=== PATIENT | male | born 1945 | race Caucasian/White ===

== ENCOUNTER 2021-11-22 15:15 | Observation (INO) | payer OTHER, BC ==
--- OUTSIDE RECORDS SUMMARY | 2021-11-22 15:18 | XMS REPORT | Continuity of Care Document ---
:1945 Author Organization [facility] t Address [address] [place] [address] Care Team Providers Name Role Phone JAYDEN BARBA Primary Care Physician Unavailable Jayden Barba MD Attending Clinician JAYDEN BARBA Attending Clinician Unavailable Ariel Aragon Attending Clinician [phone] Jayden Anne MD Attending Clinician ARIEL FUNEZ Attending Clinician Unavailable Doctor Unassigned, [place] Attending Clinician Unavailable NISH PECK Attending Clinician Unavailable Provider, [facility] Attending Clinician Unavailable Yamilet Hernandez Attending Clinician YAMILET JOHNSON Attending Clinician Unavailable Serena Samuels Attending Clinician Payers Payer Name Policy Type Policy Number Effective Date Expiration Date S ource Problems Condition Condition Condition Status Onset Resolution Last Treating Co mments Source Name Details Category Date Date Treatment Clinician Date Systolic Systolic Disease Active 2014-02 Unive rs congestive congestive 02-16 it y of heart heart 00:00: [place] failure failure 00 Medical Branch Coronary Coronary Disease Active 2014-02 Unive rs artery artery 02-16 ity of disease disease 00:00: [place] without without 00 Medical angina 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-02 U nivers steremia steremia 02-16 ity of 00:00: [place] 00 Medical Branch Allergies, Adverse Reactions, Alerts Allergy Allergy Status Severity Reaction(s) Onset Inactive Treating Comm ents Source Name Type Date Date Clinician NO KNOWN Drug Active [facility] ALLERGIE Class ity of [facility] [place] [facility] Social History Social Habit Start Date Stop Date Quantity Comments Source Exposure to 2021-06-05 2021-06-15 Not sure [facility] SARS-CoV-2 (event) 00:00:00 13:52:00 Medica l Branch Alcohol intake 2021-06-06 2021-06-06 0 /d [facility] 00:00:00 00:00:00 Medical Branch Tobacco use and 2014-12-17 2014-12-17 Never used [facility] exposure 00:00:00 00:00:00 Medical Branch History of tobacco 2006-12-17 Smoker [facility] use 00:00:00 [facility] Sex [birth year] [facility] 00:00:00 00:00:00 Medical Branch Smoking Status Start Date Stop Date Source Former smoker 2014-12-17 00:00:00 2014-12-17 00:00:00 [facility] Medical Branch Medications Ordered Filled Start Stop Current Ordering Indication Dosage Frequency Signature Comments Components Source Medication Medication Date Date Medication? Clinician (SIG) Name Name traMADoL 50 Yes 50mg Take 50 mg Univers mg tablet 5-05 by mouth 3 ity of 00:00: (three) [place] 00 times Medical daily. Branch doxycycline Yes [id number] 100mg Take 1 Univers hyclate 100 5-01 9107 tablet by ity of mg tablet 00:00: mouth 2 [place] 00 (two) Medical times Branch daily. metOLazone Yes TAKE 1 Unive rs 10 mg 4-08 TABLET BY ity of tablet 00:00: MOUTH 1 [place] 00 HOURS Medical PRIOR TO Branch MORNING DOSE OF LASIX....1 TIME A WEEK furosemide Yes 80mg Take 80 mg U nivers (LASIX) 80 3-23 by mouth ity o f mg tablet 11:37: as needed [place] as 14 (edema). Medical Branch amoxicillin Yes [id number] 1{tbl} Take 1 Univers -clavulanat 3-23 tablet by ity of e 00:00: mouth 2 [place] (AUGMENTIN) 00 (two) Medical 875-125 mg times Branch per tablet daily. albuterol Yes [id number] 2{puff} Inhale 2 Univers 90 3-23 Puffs ity of mcg/actuati 00:00: every 6 [place] as on inhaler 00 (six) Medical hours as Branch needed for Wheezing or Shortness of Breath. benzonatate Yes [id number] 200mg Take 1 Univers 200 mg 3-23 capsule by ity of capsule 00:00: mouth 3 [place] 00 (three) Medical times Branch daily as needed for Cough. clopidogrel 2018-02 Yes 75mg Take 75 mg Univers (PLAVIX) 75 -07 by mouth ity of mg tablet 11:32: daily. [place] 57 Medical Branch atorvastati 2018-02 Yes 80mg Take 80 mg Univers n (LIPITOR) -07 by mouth ity of 80 mg 11:32: at [place] tablet 57 bedtime. Medical Branch sacubitril- 2018-02 Yes Take by Uni vers valsartan 1-07 mouth 2 ity of (ENTRESTO) 11:32: (two) [place] 24-26 mg 57 times Medical Tab daily. Branch KCL 10 mEq Yes 10meq Take 10 Uni vers tablet 1-02 mEq by ity of 00:00: mouth [place] 00 daily. Medical Branch Immunizations Ordered Filled Immunization Date Status Comments [facility] Immunization Name Name SARS-COV-2 COVID-19 2020-03-11 Completed Unive rsity of MODERNA VACCINE 00:00:00 [facility] SARS-COV-2 COVID-19 2020-02-12 Completed Unive rsity of MODERNA VACCINE 00:00:00 [facility] Influenza High Dose 2016-12-06 Completed Unive rsity of 00:00:00 [facility] Pneumococcal 13 2016-12-06 Completed Universit y of Conjugate, PCV13 00:00:00 [facility] dical (Prevnar 13) Branch Vital Signs Vital Name Observation Time Observation Value Comments Source Systolic blood 2021-06-15 19:17:00 95 mm[Hg] Univer sity of [place] pressure [facility] Diastolic blood 2021-06-15 19:17:00 65 mm[Hg] Unive rsity of [facility] Heart rate 2021-06-15 19:17:00 74 /min [facility] Body height 2021-06-15 19:17:00 172.7 cm [facility] Body weight 2021-06-15 19:17:00 75.751 kg [facility] BMI 2021-06-15 19:17:00 25.39 kg/m2 [facility] Procedures This patient has no known procedures. Encounters Start End Encounter Admission Attending Care Care Encounter Source Date/Time Date/Time Type Type Clinicians Facility Department ID 2021-06-15 2021-06-15 Office [facility] [place] [facility] [id number] Univers 14:00:00 14:15:00 Visit [facility] [id number] it y of Edward [place] [id number] [place] as COLTEN?BLEA [id number] [address] OFFICE [facility] 2021-06-15 2021-06-15 Outpatient [facility] [id number] Univers 14:00:00 14:00:00 [facility] 2021-06-15 2021-06-15 Outpatient [facility] [id number] Univers 14:00:00 14:00:00 [facility] 2021-06-09 2021-06-09 Telephone [facility] [place] [facility] [id number] Univers 00:00:00 00:00:00 [facility] [id number] it y of [place] [id number] [place] as COLTEN?BLEA [id number] [facility] [address] [place] MEDICAL OFFICE [facility] 2021-06-06 2021-06-06 [facility] Kavitha [facility] [id number] Univers 10:40:01 23:59:00 Encounter luisito Yosepholimpiahever [facility]ALTH [id number] ity of [place] 4.2.7.2.686 [place] as COLTEN?BLEA [id number] Vt parul GIRARD [address] [place] MEDICAL OFFICE [facility] 2021-06-06 2021-06-06 Urgent Ariel Funez [facility] 1.2 [id number] Univers 10:00:00 11:35:58 Care Jayden Martel HEALTH [id number] ity of [place] [id number] [place] as COLTEN?BLEA [id number] Vt parul GIRARD [address] [place] MEDICAL OFFICE BUILDING 2021-06-06 2021-06-06 Outpatient R [facility] [id number] Univers 10:16:28 10:39:00 SARIEL it y of [facility] 2021-06-06 2021-06-06 [facility] [id number] Univers 10:16:28 10:39:00 [facility] [id number] [facility] [id number] [place] as COLTEN?BLEA [phone] Vt parul GIRARD [address] [place] MEDICAL OFFICE [facility] 2021-04-28 2021-04-28 [facility] [id number] Univers 11:30:00 11:45:00 Visit [facility] [id number] it y of [place] [facility] [id number] [place] as COLTEN?BLEA [id number] Vt parul GIRARD 044 [facility] OFFICE [facility] 2021-04-28 2021-04-28 Outpatient R [facility] [id number] Univers 11:30:00 11:30:00 JAYDEN jose [facility] 2021-04-28 2021-04-28 Outpatient R [facility] [id number] Univers 11:30:00 11:30:00 JAYDEN jose [facility] 2020-12-24 2020-12-24 Orders Doctor KENDALL [id number] Univers 00:00:00 00:00:00 Only Unassigned, MERA [id number] ity of [place] [facility] [id number] [place] as [phone] [address] 2020-09-21 2020-09-21 Orders Doctor KENDALL [id number] Univers 00:00:00 00:00:00 Only Unassigned, MERA [id number] ity of [place] [facility] [id number] [place] as [id number] [address] 2020-03-11 2020-03-11 Outpatient Jeremiah PECK [facility] [id number] Univers 14:20:00 14:20:00 NISH ity [facility] 2020-02-12 2020-02-12 Outpatient Jeremiah PECK [facility] [id number] Univers 14:50:00 14:50:00 NISH ity [facility] 2020-02-12 2020-02-12 [facility] [id number] Univers 14:50:00 14:50:00 NISH [facility] 2019-12-07 2019-12-07 Urgent Provider, [facility] [id number] 15:49:53 16:37:32 Care [facility] [id number] Care [place] [id number] Professio [phone] [place] [address] Office [address] [facility] 2019-12-07 2019-12-07 Urgent Provider, [facility] [id number] Univers 15:49:53 16:37:32 Care Green, [facility] [id number] ity of [place] [id number] [place] as Professio [id number] [address] Office Building [facility] 2019-12-07 2019-12-07 Outpatient Jeremiah JOHNSON [facility] [id number] Univers 15:40:00 15:40:00 YAMILET [facility] 2019-11-01 2019-11-01 Urgent Provider, [facility] [id number] Univers 15:24:48 15:44:48 Care Anene, [facility] [id number] ity of [place] [id number] [place] as Professio [id number] [address] Office Building [facility] 2019-11-01 2019-11-01 Urgent Provider, [facility] [id number] 15:24:48 15:44:48 Care [facility] [id number] Care [place] [id number] Mary [phone] nal [address] Office [address] One 2019-11-01 2019-11-01 Outpatient R [facility] [id number] Univers 15:20:00 15:20:00 [facility] Results This patient has no known results.
[2021-11-22] MEDS ORDERED: NA CHLORIDE 0.9% 1,000 ML ONE (16:28)
--- NOTE | 2021-11-22 16:59 | RAD REPORT ---
EXAM DESCRIPTION: RAD - Chest Single View - 11/22/2021 4:50 pm CLINICAL HISTORY: CHF Chest pain. COMPARISON: CHEST SINGLE VIEW dated 12/23/2014; CHEST SINGLE VIEW dated 05/14/2014 FINDINGS: Portable technique limits examination quality. Moderate bilateral pulmonary opacities present likely representing pulmonary edema. The heart is mode rately enlarged in size. No displaced fractures.Sternotomy wires. IMPRESSION: Moderate CHF.
[2021-11-22 17:15] LABS: Protime INR 1.29
[2021-11-22 17:21] LABS: Absolute Lymphocytes (CBC) 0.5 K/uL (0.7-4.9); Hematocrit 34.8 % (39.6-49.0); Lymphocytes % 9.1 % (15.3-44.8); MCV 88.5 fL (80-100); MPV 8.4 fL (7.6-11.3); RBC Red Blood Cell Count 3.93 M/uL (4.33-5.43)
[2021-11-22 17:34] LABS: Albumin 3.1 g/dL (3.4-5.0); Bilirubin Direct 0.3 mg/dL (0-0.2); Bilirubin Total 0.9 mg/dL (0.2-1.0); Magnesium 2.2 mg/dL (1.8-2.4); Potassium 3.5 mmol/L (3.5-5.1); Protein, Total 7.1 g/dL (6.4-8.2)
[2021-11-22 17:55] LABS: SARS-CoV-2 Antigen Rapid Res Negative (Negative)
[2021-11-22] MEDS ORDERED: NOREPINEPHRINE BITARTRATE/D5W 4 MG/250 ML BAG IV ONE (20:05)
[2021-11-22] MEDS ORDERED: FUROSEMIDE 40 MG/4 ML VIAL ONE (20:33)
--- NOTE | 2021-11-22 20:49 | ER ---
Nurse's Notes [facility] Name: Teo Nassar Age: 76 yrs Sex: Male : 1945 Arrival Date: 11/22/2021 Time: 15:21 Bed 7 Private MD: Diagnosis: Hypotension, unspecified;Unspecified combined systolic (congestive) and diastolic (congestive) heart failure;Leakage from paracentesis puncture wound Presentation: 11/22 15:40 Chief complaint: Patient states: a week ago today he had a paracentesis done with Dr. dennis Gan, and since then he has had drainage from the site. Coronavirus screen: At this time, the client does not indicate any symptoms associated with coronavirus-19. Ebola Screen: Patient negative for fever greater than or equal to 101.5 degrees Fahrenheit, and additional compatible Ebola Virus Disease symptoms Patient denies exposure to infectious person. Patient denies travel to an Ebola-affected area in the 21 days before illness onset. No symptoms or risks identified at this time. Initial Sepsis Screen: Does the patient meet any 2 criteria? No. Patient's initial sepsis screen is negative. Does the patient have a suspected source of infection? No. Patient's initial sepsis screen is negative. Risk Assessment: Do you want to hurt yourself or someone else? Patient reports no desire to harm self or others. Onset of symptoms was November 15, 2021. 15:40 Method Of Arrival: Ambulatory iw 15:40 Acuity: RASTA 3 iw Historical: - Allergies: 15:41 No Known Allergies; iw - PMHx: 15:41 CHF; iw - Immunization history:: Adult Immunizations up to date, Client reports receiving the 2nd dose of the Covid vaccine. - Social history:: Smoking status: Patient denies any tobacco usage or history of. Patient/guardian denies using alcohol. Screenin:08 Abuse screen: Denies threats or abuse. Denies injuries from another. Nutritional ld1 screening: No deficits noted. Tuberculosis screening: No symptoms or risk factors identified. Fall Risk None identified. Assessment: 17:08 General: Appears in no apparent distress. comfortable, Behavior is calm, cooperative, ld1 appropriate for age. Pain: Denies pain. Neuro: Level of Consciousness is awake, alert, obeys commands, Oriented to person, place, time, situation, Appropriate for age. Cardiovascular: Capillary refill < 3 seconds Patient's skin is warm and dry. Rhythm is sinus rhythm. Respiratory: Airway is patent Respiratory effort is even, unlabored. GI: Abdomen is round distended, noted to have ascites, incisional drainage on abdomen due to paracentesis last Monday. : No signs and/or symptoms were reported regarding the genitourinary system. EENT: No signs and/or symptoms were reported regarding the EENT system. Derm: No signs and/or symptoms reported regarding the dermatologic system. Musculoskeletal: No signs and/or symptoms reported regarding the musculoskeletal system. 17:57 Reassessment: Patient appears in no apparent distress at this time. Patient and/or ld1 family updated on plan of care and expected duration. Pain level reassessed. Patient is alert, oriented x 3, equal unlabored respirations, skin warm/dry/pink. Patient denies pain at this time. 20:21 Reassessment: Patient appears in no apparent distress at this time. No changes from ld1 previously documented assessment. Patient and/or family updated on plan of care and expected duration. Pain level reassessed. Patient denies pain at this time. 20:36 Reassessment: Patient appears in no apparent distress at this time. Patient and/or ld1 family updated on plan of care and expected duration. Pain level reassessed. Patient states feeling better. Patient states symptoms have improved. 22:19 General: Appears in no apparent distress. Behavior is calm, cooperative, appropriate tw5 for age. Vital Signs: 15:43 BP 82 / 53; Pulse 66; Resp 16; Pulse Ox 99% on R/A; Weight 70.31 kg; Height 5 ft. 8 in. iw (172.72 cm); 17:08 BP 88 / 58; Pulse 65; Resp 17; Pulse Ox 92% on R/A; Pain 0/10; ld1 17:57 BP 83 / 56; Pulse 64; Resp 18; Pulse Ox 98% on R/A; Pain 0/10; ld1 19:07 BP 83 / 54; Pulse 58; Resp 15; Pulse Ox 99% on R/A; ld1 19:56 BP 78 / 53; Pulse 65; Resp 17; Pulse Ox 99% on R/A; ld1 20:12 BP 75 / 52; Pulse 62; ld1 20:15 BP 112 / 64; Pulse 64; ld1 20:17 BP 124 / 71; Pulse 72; ld1 20:18 BP 124 / 71; Pulse 73; ld1 20:21 BP 119 / 73; Pulse 88; Pulse Ox 100% on R/A; ld1 20:22 BP 119 / 73; Pulse 76; Resp 18; ld1 20:25 BP 127 / 80; Pulse 97; Resp 17; ld1 20:26 BP 140 / 77; Pulse 96; Resp 19; ld1 20:30 BP 128 / 81; Pulse 91; Resp 12; ld1 20:35 BP 119 / 60; Pulse 86; Resp 14; ld1 20:39 BP 118 / 78; Pulse 85; Resp 18; Temp 9; ld1 20:54 BP 114 / 57; Pulse 71; Resp 19; ld1 21:07 BP 111 / 62; Pulse 1; Resp 19; ld1 21:25 BP 98 / 68; Pulse 74; ld1 22:15 BP 110 / 73; Pulse 87; Resp 17 S; Pulse Ox 94% on R/A; as6 22:20 BP 110 / 73; tw5 22:30 BP 97 / 60; Pulse 69; Resp 15 S; Pulse Ox 96% on R/A; as6 22:40 BP 101 / 62; Pulse 68; Resp 15; Pulse Ox 95% ; as6 22:50 BP 101 / 62; Pulse 71; Resp 15 S; Pulse Ox 95% on R/A; as6 23:00 BP 83 / 47; Pulse 60; Resp 15 S; Pulse Ox 95% on R/A; as6 23:20 BP 84 / 50; Pulse 57; Resp 15 S; Pulse Ox 95% on R/A; as6 23:40 BP 83 / 52; Pulse 56; Resp 14 S; Pulse Ox 95% on R/A; as6 23:50 BP 108 / 66; Pulse 67; Resp 15 S; Pulse Ox 94% on R/A; as6 1018 00:00 BP 105 / 67; Pulse 65; Resp 16 S; Pulse Ox 68% on R/A; as6 00:20 BP 108 / 69; Pulse 83; Resp 15 S; Pulse Ox 94% on R/A; as6 00:30 BP 113 / 64; Pulse 79; Resp 15 S; Pulse Ox 96% on R/A; as6 00:40 BP 108 / 57; Pulse 82; Resp 14 S; Pulse Ox 96% on R/A; as6 00:50 BP 104 / 70; Pulse 65; Resp 14 S; Pulse Ox 97% on R/A; as6 01:00 BP 91 / 56; Pulse 78; Resp 15 S; Pulse Ox 98% on R/A; as6 01:10 BP 111 / 68; Pulse 78; Resp 15; Pulse Ox 97% ; as6 01:20 BP 99 / 62; Pulse 77; Resp 15 S; Pulse Ox 96% on R/A; as6 01:30 BP 104 / 55; Pulse 74; Resp 15 S; Pulse Ox 96% on R/A; as6 01:40 BP 109 / 64; Pulse 78; Resp 17 S; Pulse Ox 96% on R/A; as6 01:50 BP 111 / 70; Pulse 79; Resp 16 S; Pulse Ox 96% on R/A; as6 02:00 BP 98 / 64; Pulse 77; Resp 16 S; Pulse Ox 96% on R/A; as6 02:10 BP 106 / 65; Pulse 77; Resp 16 S; Pulse Ox 96% on R/A; as6 02:20 BP 109 / 57; Pulse 62; Resp 15 S; Pulse Ox 95% on R/A; as6 02:30 BP 103 / 57; Pulse 67; Resp 15; Pulse Ox 95% on R/A; as6 02:40 BP 113 / 71; Pulse 65; Resp 15; Pulse Ox 97% ; as6 02:50 BP 100 / 64; Pulse 64; Resp 18; Pulse Ox 96% on R/A; as6 03:00 BP 107 / 69; Pulse 69; Resp 18; Pulse Ox 96% on R/A; as6 05:00 BP 98 / 67; Pulse 81; Resp 16; Pulse Ox 96% on R/A; aa9 05:15 BP 98 / 66; Pulse 77; Resp 16; Pulse Ox 97% ; aa9 05:40 BP 105 / 59; Pulse 67; Resp 16 S; Pulse Ox 96% on R/A; aa9 05:50 BP 105 / 59; Pulse 78; Resp 16; Pulse Ox 98% ; aa9 06:40 BP 99 / 59; Pulse 63; Resp 16 S; Pulse Ox 98% on R/A; 11/22 15:43 Body Mass Index 23.57 (70.31 kg, 172.72 cm) iw ED Course: 11/22 15:21 Patient arrived in ED. as 15:37 Cherie Gracia FNP-C [facility]. snw 15:37 Joseline Vuong MD is Attending Physician. snw 15:41 Triage completed. iw 15:41 Arm band placed on. iw 16:26 Pat Wilkins, INESSA is Primary Nurse. ld1 16:51 XRAY Chest (1 view) In Process Unspecified. EDMS 17:07 Inserted saline lock: 20 gauge in left antecubital area, using aseptic technique. Blood ld1 collected. Missed attempt(s): 20 gauge in right forearm. 17:08 Patient has correct armband on for positive identification. Placed in gown. Bed in low ld1 position. Call light in reach. Side rails up X2. monitor and storage bin tender on. Pulse ox on. NIBP on. Door closed. Noise minimized. Warm blanket given. 17:08 No provider procedures requiring assistance completed. ld1 19:00 Bourgeois cath inserted, using sterile technique, 16 Fr., by mt, balloon inflated, to ld1 gravity drainage, returned clear yellow urine. Patient tolerated well. 20:36 Pillow given. Diet tray given. PO fluids given. ld1 20:48 Siva Watson is Hospitalizing Provider. snw 21:26 Report given to INESSA Velarde. ld1 22:13 Patient admitted, IV remains in place. as6 Administered Medications: 17:07 Drug: NS 0.9% 1000 ml Route: IV; Rate: 75 ml/hr; Site: left antecubital; ld1 20:12 Drug: Levophed (norepinephrine) 0.1 mcg/kg/min Route: IV; Rate: calculated rate; Site: ld1 left femoral; 20:18 Follow up: BP 124 / 71; Pulse 73 bpm; Response: Blood pressure is elevated; IV Status: ld1 Infusion continued 20:22 Follow up: BP 119 / 73; Pulse 76 bpm; Resp 18 bpm; IV Status: Infusion continued ld1 20:25 Follow up: BP 127 / 80; Pulse 97 bpm; Resp 17 bpm; Response: Blood pressure is ld1 elevated; IV Status: Infusion continued 20:26 Follow up: BP 140 / 77; Pulse 96 bpm; Resp 19 bpm; Response: No adverse reaction; IV ld1 Status: Infusion continued 20:30 Follow up: BP 128 / 81; Pulse 91 bpm; Resp 12 bpm; Response: No adverse reaction; Rate ld1 change 3.5 mcg/min; IV Status: Infusion continued 20:35 Follow up: BP 119 / 60; Pulse 86 bpm; Resp 14 bpm; Response: No adverse reaction; IV ld1 Status: Infusion continued 20:39 Follow up: BP 118 / 78; Pulse 85 bpm; Resp 18 bpm; Temp 9; Response: No adverse ld1 reaction; IV Status: Infusion continued 20:54 Follow up: BP 114 / 57; Pulse 71 bpm; Resp 19 bpm; Response: No adverse reaction; IV ld1 Status: Infusion continued 21:07 Follow up: BP 111 / 62; Pulse 1 bpm; Resp 19 bpm; Response: No adverse reaction; IV ld1 Status: Infusion continued 21:25 Follow up: BP 98 / 68; Pulse 74 bpm; Rate change 7 mcg/min; IV Status: Infusion ld1 continued 22:20 Follow up: BP 110 / 73; Rate change 4 mcg/min tw5 20:35 Drug: Lasix (furosemide) 40 mg Route: IVP; Site: left antecubital; ld1 21:08 Follow up: Response: No adverse reaction ld1 Medication: 17:08 VIS not applicable for this client. ld1 Intake: 20:36 PO: 250ml (Water); IV: 140ml (IV Fluid); Total: 390ml. ld1 Output: 20:36 Urine: 600ml (Bourgeois); Total: 600ml. ld1 Outcome: 20:48 Decision to Hospitalize by Provider. snw 22:12 Admitted to ER Hold. Please see [facility] for further documentation. as6 22:12 Condition: stable 22:12 Instructed on the need for admit. 11/23 20:41 Patient left the ED. kd3 Signatures: Dispatcher [employer] EDMS Cherie Gracia FNP-C [employer]-Gianna Whitney Irene, RN RN iw Pat Wilkins RN RN ld1 Chiquita Cota tw5 Syd Appiah RN RN as6 Gabriela Gonzalez RN RN kd3 Sarah Troncoso RN RN aa9
--- NOTE | 2021-11-22 20:49 | EDPHYS ---
Physician Documentation [facility] Name: Teo Nassar Age: 76 yrs Sex: Male : 1945 Arrival Date: 11/22/2021 Time: 15:21 Bed 7 Private MD: ED Physician Joseline Vuong HPI: 11/22 16:23 This 76 yrs old Male presents to ER via Ambulatory with complaints of Incisional snw Drainage. 16:23 Pt had first ever paracentesis last Monday by Dr. Gan. Procedure went well. Pt snw presents today with clear drainage from area, abdomen with edema, site healthy. Dr. Gómez encouraged pt to come in for reevaluation. Onset: The symptoms/episode began/occurred suddenly, 2 day(s) ago. Severity of symptoms: At their worst the symptoms were moderate in the emergency department the symptoms are unchanged. The patient has not experienced similar symptoms in the past. as noted. Pt does not have a PCP. Historical: - Allergies: 15:41 No Known Allergies; iw - PMHx: 15:41 CHF; iw - Immunization history:: Adult Immunizations up to date, Client reports receiving the 2nd dose of the Covid vaccine. - Social history:: Smoking status: Patient denies any tobacco usage or history of. Patient/guardian denies using alcohol. ROS: 16:21 Eyes: Negative for injury, pain, redness, and discharge, ENT: Negative for injury, snw pain, and discharge, Neck: Negative for injury, pain, and swelling, Cardiovascular: Negative for chest pain, palpitations, and edema, Respiratory: Negative for shortness of breath, cough, wheezing, and pleuritic chest pain, Back: Negative for injury and pain, : Negative for injury, bleeding, discharge, and swelling, MS/Extremity: Negative for injury and deformity, Skin: Negative for injury, rash, and discoloration, Neuro: Negative for headache, weakness, numbness, tingling, and seizure. 16:21 Constitutional: Positive for body aches, malaise, drainage from paracentesis procedure last Monday per Dr. Gan, site o/w healthy. 16:21 Abdomen/GI: Positive for draining from paracentesis site. Exam: 16:20 Head/Face: Normocephalic, atraumatic. Eyes: Pupils equal round and reactive to light, snw extra-ocular motions intact. Lids and lashes normal. Conjunctiva and sclera are non-icteric and not injected. Cornea within normal limits. Periorbital areas with no swelling, redness, or edema. ENT: Nares patent. No nasal discharge, no septal abnormalities noted. Tympanic membranes are normal and external auditory canals are clear. Oropharynx with no redness, swelling, or masses, exudates, or evidence of obstruction, uvula midline. Mucous membranes moist. Neck: Trachea midline, no thyromegaly or masses palpated, and no cervical lymphadenopathy. Supple, full range of motion without nuchal rigidity, or vertebral point tenderness. No Meningismus. Chest/axilla: Normal chest wall appearance and motion. Nontender with no deformity. No lesions are appreciated. 16:20 Respiratory: Lungs have equal breath sounds bilaterally, clear to auscultation and percussion. No rales, rhonchi or wheezes noted. No increased work of breathing, no retractions or nasal flaring. Abdomen/GI: Soft, non-tender, with normal bowel sounds. No distension or tympany. No guarding or rebound. No evidence of tenderness throughout. Back: No spinal tenderness. No costovertebral tenderness. Full range of motion. Skin: Warm, dry with normal turgor. Normal color with no rashes, no lesions, and no evidence of cellulitis. MS/ Extremity: Pulses equal, no cyanosis. Neurovascular intact. Full, normal range of motion. Neuro: Awake and alert, GCS 15, oriented to person, place, time, and situation. Cranial nerves II-XII grossly intact. Motor strength 5/5 in all extremities. Sensory grossly intact. Cerebellar exam normal. Normal gait. 16:20 Constitutional: The patient appears alert, awake, pale, uncomfortable. 16:20 Cardiovascular: Rate: normal, Heart sounds: normal, low bp, belly with edema, draining from prior paracentesis puncture. Vital Signs: 15:43 BP 82 / 53; Pulse 66; Resp 16; Pulse Ox 99% on R/A; Weight 70.31 kg; Height 5 ft. 8 in. iw (172.72 cm); 17:08 BP 88 / 58; Pulse 65; Resp 17; Pulse Ox 92% on R/A; Pain 0/10; ld1 17:57 BP 83 / 56; Pulse 64; Resp 18; Pulse Ox 98% on R/A; Pain 0/10; ld1 19:07 BP 83 / 54; Pulse 58; Resp 15; Pulse Ox 99% on R/A; ld1 19:56 BP 78 / 53; Pulse 65; Resp 17; Pulse Ox 99% on R/A; ld1 20:12 BP 75 / 52; Pulse 62; ld1 20:15 BP 112 / 64; Pulse 64; ld1 20:17 BP 124 / 71; Pulse 72; ld1 20:18 BP 124 / 71; Pulse 73; ld1 20:21 BP 119 / 73; Pulse 88; Pulse Ox 100% on R/A; ld1 20:22 BP 119 / 73; Pulse 76; Resp 18; ld1 20:25 BP 127 / 80; Pulse 97; Resp 17; ld1 20:26 BP 140 / 77; Pulse 96; Resp 19; ld1 20:30 BP 128 / 81; Pulse 91; Resp 12; ld1 20:35 BP 119 / 60; Pulse 86; Resp 14; ld1 20:39 BP 118 / 78; Pulse 85; Resp 18; Temp 9; ld1 20:54 BP 114 / 57; Pulse 71; Resp 19; ld1 21:07 BP 111 / 62; Pulse 1; Resp 19; ld1 21:25 BP 98 / 68; Pulse 74; ld1 22:15 BP 110 / 73; Pulse 87; Resp 17 S; Pulse Ox 94% on R/A; as6 22:20 BP 110 / 73; tw5 22:30 BP 97 / 60; Pulse 69; Resp 15 S; Pulse Ox 96% on R/A; as6 22:40 BP 101 / 62; Pulse 68; Resp 15; Pulse Ox 95% ; as6 22:50 BP 101 / 62; Pulse 71; Resp 15 S; Pulse Ox 95% on R/A; as6 23:00 BP 83 / 47; Pulse 60; Resp 15 S; Pulse Ox 95% on R/A; as6 23:20 BP 84 / 50; Pulse 57; Resp 15 S; Pulse Ox 95% on R/A; as6 23:40 BP 83 / 52; Pulse 56; Resp 14 S; Pulse Ox 95% on R/A; as6 23:50 BP 108 / 66; Pulse 67; Resp 15 S; Pulse Ox 94% on R/A; as6 11/23 00:00 BP 105 / 67; Pulse 65; Resp 16 S; Pulse Ox 68% on R/A; as6 00:20 BP 108 / 69; Pulse 83; Resp 15 S; Pulse Ox 94% on R/A; as6 00:30 BP 113 / 64; Pulse 79; Resp 15 S; Pulse Ox 96% on R/A; as6 00:40 BP 108 / 57; Pulse 82; Resp 14 S; Pulse Ox 96% on R/A; as6 00:50 BP 104 / 70; Pulse 65; Resp 14 S; Pulse Ox 97% on R/A; as6 01:00 BP 91 / 56; Pulse 78; Resp 15 S; Pulse Ox 98% on R/A; as6 :10 BP 111 / 68; Pulse 78; Resp 15; Pulse Ox 97% ; as6 :20 BP 99 / 62; Pulse 77; Resp 15 S; Pulse Ox 96% on R/A; as6 :30 BP 104 / 55; Pulse 74; Resp 15 S; Pulse Ox 96% on R/A; as6 :40 BP 109 / 64; Pulse 78; Resp 17 S; Pulse Ox 96% on R/A; as6 01:50 BP 111 / 70; Pulse 79; Resp 16 S; Pulse Ox 96% on R/A; as6 02:00 BP 98 / 64; Pulse 77; Resp 16 S; Pulse Ox 96% on R/A; as6 :10 BP 106 / 65; Pulse 77; Resp 16 S; Pulse Ox 96% on R/A; as6 :20 BP 109 / 57; Pulse 62; Resp 15 S; Pulse Ox 95% on R/A; as6 02:30 BP 103 / 57; Pulse 67; Resp 15; Pulse Ox 95% on R/A; as6 02:40 BP 113 / 71; Pulse 65; Resp 15; Pulse Ox 97% ; as6 02:50 BP 100 / 64; Pulse 64; Resp 18; Pulse Ox 96% on R/A; as6 03:00 BP 107 / 69; Pulse 69; Resp 18; Pulse Ox 96% on R/A; as6 05:00 BP 98 / 67; Pulse 81; Resp 16; Pulse Ox 96% on R/A; aa9 05:15 BP 98 / 66; Pulse 77; Resp 16; Pulse Ox 97% ; aa9 05:40 BP 105 / 59; Pulse 67; Resp 16 S; Pulse Ox 96% on R/A; aa9 05:50 BP 105 / 59; Pulse 78; Resp 16; Pulse Ox 98% ; aa9 06:40 BP 99 / 59; Pulse 63; Resp 16 S; Pulse Ox 98% on R/A; aa9 11/22 15:43 Body Mass Index 23.57 (70.31 kg, 172.72 cm) iw Procedures: 11/22 20:06 Central Line: the site was prepped with in sterile fashion, hibiclens, a triple lumen snw catheter was inserted, in the left femoral vein, in 1 attempts. placement was verified, by blood return, the site was dressed with Tegaderm, using sterile technique, the patient tolerated the procedure, well. MDM: 15:46 Patient medically screened. snw 17:24 Physician consultation: Dann Nash MD was called at 17:24, was contacted at 17:24, snw regarding admission, Dr. Nash would like pt transferred to higher level of care. 20:04 Data reviewed: vital signs, nurses notes. Data interpreted: Pulse oximetry: on room air snw is 99 %. Counseling: I had a detailed discussion with the patient and/or guardian regarding: the historical points, exam findings, and any diagnostic results supporting the discharge/admit diagnosis, lab results, radiology results, the need for further work-up and treatment in the hospital. ED course: unable to diurese pt with current bp, left femoral triple lumen central line placed per sterile technique. +blood return and flushed to all ports. Pt tolerated procedure well.. 11/22 15:55 Order name: Basic Metabolic Panel; Complete Time: 17:36 snw 11/22 15:55 Order name: CBC with Diff; Complete Time: 17:27 snw 11/22 15:55 Order name: Hepatic Function; Complete Time: 17:36 snw 11/22 15:55 Order name: Magnesium; Complete Time: 17:36 snw 11/22 15:55 Order name: NT PRO-BNP; Complete Time: 17:36 snw 11/22 15:55 Order name: Protime (+inr); Complete Time: 17:15 snw 11/22 15:55 Order name: Troponin HS; Complete Time: 17:36 snw 11/22 15:55 Order name: Blood Culture Adult (2); Complete Time: 20:15 snw 11/22 15:55 Order name: Lactate; Complete Time: 17:36 snw 11/22 17:14 Order name: SARS RAPID; Complete Time: 18:00 snw 11/23 03:04 Order name: CBC with Automated Diff; Complete Time: 03:07 EDMS 11/23 03:34 Order name: Comprehensive Metabolic Panel; Complete Time: 03:38 EDMS 11/23 03:34 Order name: Phosphorus; Complete Time: 03:38 EDMS 11/23 03:34 Order name: Lipid Profile; Complete Time: 03:38 EDMS 11/22 15:55 Order name: XRAY Chest (1 view); Complete Time: 17:01 snw 11/22 15:55 Order name: EKG; Complete Time: 15:56 snw 11/22 15:55 Order name: Cardiac monitoring; Complete Time: 16:26 snw 11/22 15:55 Order name: EKG - Nurse/Tech; Complete Time: 16:26 snw 11/22 15:55 Order name: IV Saline Lock; Complete Time: 17:07 snw 11/22 15:55 Order name: Labs collected and sent; Complete Time: 17:07 snw 11/22 15:55 Order name: O2 Per Protocol; Complete Time: 16:26 snw 11/22 15:55 Order name: O2 Sat Monitoring; Complete Time: 16:26 snw 11/22 19:57 Order name: Diet 2 Gm Sodium; Complete Time: 19:58 snw 11/23 03:34 Order name: Magnesium; Complete Time: 03:38 EDMS 11/23 03:34 Order name: Thyroid Stimulating Hormone; Complete Time: 03:38 EDMS 11/22 17:30 Order name: Bourgeois; Complete Time: 19:00 snw 11/22 19:57 Order name: Central Line Kit; Complete Time: 20:14 snw EC:30 Rate is 55 beats/min. Rhythm is regular. Q waves are Present. No ST changes noted. snw Clinical impression: Sinus bradycardia. Administered Medications: 17:07 Drug: NS 0.9% 1000 ml Route: IV; Rate: 75 ml/hr; Site: left antecubital; ld1 20:12 Drug: Levophed (norepinephrine) 0.1 mcg/kg/min Route: IV; Rate: calculated rate; Site: ld1 left femoral; 20:18 Follow up: BP 124 / 71; Pulse 73 bpm; Response: Blood pressure is elevated; IV Status: ld1 Infusion continued 20:22 Follow up: BP 119 / 73; Pulse 76 bpm; Resp 18 bpm; IV Status: Infusion continued ld1 20:25 Follow up: BP 127 / 80; Pulse 97 bpm; Resp 17 bpm; Response: Blood pressure is ld1 elevated; IV Status: Infusion continued 20:26 Follow up: BP 140 / 77; Pulse 96 bpm; Resp 19 bpm; Response: No adverse reaction; IV ld1 Status: Infusion continued 20:30 Follow up: BP 128 / 81; Pulse 91 bpm; Resp 12 bpm; Response: No adverse reaction; Rate ld1 change 3.5 mcg/min; IV Status: Infusion continued 20:35 Follow up: BP 119 / 60; Pulse 86 bpm; Resp 14 bpm; Response: No adverse reaction; IV ld1 Status: Infusion continued 20:39 Follow up: BP 118 / 78; Pulse 85 bpm; Resp 18 bpm; Temp 9; Response: No adverse ld1 reaction; IV Status: Infusion continued 20:54 Follow up: BP 114 / 57; Pulse 71 bpm; Resp 19 bpm; Response: No adverse reaction; IV ld1 Status: Infusion continued 21:07 Follow up: BP 111 / 62; Pulse 1 bpm; Resp 19 bpm; Response: No adverse reaction; IV ld1 Status: Infusion continued 21:25 Follow up: BP 98 / 68; Pulse 74 bpm; Rate change 7 mcg/min; IV Status: Infusion ld1 continued 22:20 Follow up: BP 110 / 73; Rate change 4 mcg/min tw5 20:35 Drug: Lasix (furosemide) 40 mg Route: IVP; Site: left antecubital; ld1 21:08 Follow up: Response: No adverse reaction ld1 Disposition Summary: 11/22/21 20:48 Hospitalization Ordered Hospitalization Status: Inpatient Admission snw Provider: Siva Watson snyesi Condition: Stable snw Problem: an acute exacerbation snw Symptoms: have worsened snw Bed/Room Type: Standard snw Location: [facility] ER HOLD(11/22/21 21:07) cg Room Assignment: ERHOLD-(11/22/21 21:07) cg Diagnosis - Hypotension, unspecified snw - Unspecified combined systolic (congestive) and diastolic (congestive) heart failure snw - Leakage from paracentesis puncture wound snw Forms: - Medication Reconciliation Form snw - SBAR form snw Critical care time excluding procedures: 11/23 16:06 Critical care time: Bedside Care: 15 minutes, Consultation: 20 minutes, Family snw Intervention: 5 minutes. Total time: 40 minutes Addendum: 11/25/2021 03:47 STAFF ATTESTATION STATEMENT: I was immediately available onsite in the emergency s d2 department for consultation in the care of this patient. I did not see or examine this patient. Joseline Vuong MD. Signatures: Dispatcher [employer] EDMS Cherie Gracia, CARPENTER SUPERVISOR-C CARPENTER SUPERVISOR-Csnw Lucinda Corley RN RN iw Leti Cartagena RN RN cg Pat Wilkins RN RN ld1 Joseline Vuong MD MD sd2 Karrie Dubois PA-C PA-C sb4 Chiquita Cota tw5 Corrections: (The following items were deleted from the chart) 11/22 20:33 18:31 Angio Aorta For Dissection ordered. EDNM EDMS 21: 20:48 Intensive Care Unit snw cg 21: 20:48 snw cg
--- NOTE | 2021-11-22 21:33 | P.HP ---
Certification for Inpatient Patient admitted to: Inpatient With expected LOS: >2 Midnights Patient will require the following post-hospital care: None Practitioner: I am a practitioner with admitting privileges, knowledge of patient current condition, hospital course, and medical plan of care. Services: Services provided to patient in accordance with Admission requirements found in Title 42 Section 412.3 of the Code of Federal Regulations Patient History Date of Service: 11/23/21 Reason for admission: Hypotension, Paracentesis Complication History of Present Illness: Patient is a 76 year old male with history of hypertension, ascites, systolic CHF, and CAD who presented to the ED with complaints of incisional drainage. Patient had a successful RLQ paracentesis done by Dr. Gan 1 week ago (ordered by Dr. Gómez) in which 8L were removed. He is noted to have clear drainage from the incision site with minimal edema. Labs are significant for sodium 133, chloride 89, BUN 64, creatinine 1.76, BNP 8000. Chest x-ray showed moderate CHF. he was noted to be borderline hypotensive and fluid overloaded. He was subsequently put on levophed drip, started on lasix, and bourgeois inserted. He has diuresed well and BP has responded appropriately. He is admitted for further management. Allergies No Known Drug Allergies Allergy (Verified 11/15/21 08:57) Unknown Home Medications: Aspirin [Nallely Chewable Aspirin] 1 tab PO DAILY 05/14/14 Clopidogrel Bisulfate [Plavix*] 75 mg PO DAILY #30 tablet 05/17/14 Atorvastatin Calcium [Lipitor] 20 mg PO DAILY 12/23/14 Sacubitril/Valsartan [Entresto 24 mg-26 mg Tablet] 1 tab PO BID 12/23/14 Furosemide 80 mg PO DAILY 11/15/21 - Past Medical/Surgical History Diabetic: No -: CAD -: Hyperlipidemia -: DVT-R arm -: Ascites -: Systolic CHF -: cardiac stent x 2 -: CABG -: deviated septum repair -: Right arm surgery Psychosocial/ Personal History: Patient lives at home. - Social History Smoking Status: Never smoker Alcohol use: No CD- Drugs: No Caffeine use: Yes Place of Residence: Home Review of Systems General: Malaise Integumentary: As per HPI Physical Examination - Physical Exam General: Alert, In no apparent distress HEENT: Atraumatic, PERRLA, EOMI, Sclerae nonicteric Neck: Supple, 2+ carotid pulse no bruit, No LAD, Without JVD or thyroid abnormality Respiratory: Clear to auscultation bilaterally, Normal air movement Cardiovascular: Regular rate/rhythm, Normal S1 S2 Gastrointestinal: Normal bowel sounds, No tenderness Musculoskeletal: No tenderness Integumentary: Other (Benign incision site to RLQ with clear drainage. Mild erythema) Neurological: Normal speech, Normal strength at 5/5 x4 extr, Normal tone, Normal affect Urinary: Bourgeois catheter - Studies Laboratory Data (last 24 hrs) 11/22/21 16:54: PT 14.2 H, INR 1.29 11/22/21 16:54: WBC 4.90, Hgb 11.7 L, Hct 34.8 L, Plt Count 231 11/22/21 16:54: Sodium 133 L, Potassium 3.5, BUN 64 H, Creatinine 1.76 H, Glucose 91, Magnesium 2.2, Total Bilirubin 0.9, AST 24, ALT 32, Alkaline Phosphatase 163 H Assessment and Plan - Problems (Diagnosis) (1) Hypotension Current Visit: Yes Status: Acute Qualifiers: Hypotension type: unspecified hypotension type Qualified Code(s): I95.9 - Hypotension, unspecified (2) CHF (congestive heart failure) Current Visit: Yes Status: Acute Qualifiers: Heart failure type: systolic Heart failure chronicity: acute on chronic Qualified Code(s): I50.23 - Acute on chronic systolic (congestive) heart failure (3) Cirrhosis Current Visit: Yes Status: Acute Qualifiers: Hepatic cirrhosis type: alcoholic cirrhosis Ascites presence: with ascites Qualified Code(s): K70.31 - Alcoholic cirrhosis of liver with ascites (4) CAD (coronary artery disease) Current Visit: Yes Status: Acute Qualifiers: Coronary Disease-Associated Artery/Lesion type: bypass graft [place] vs. transplanted heart: [place] heart Associated angina: without angina Qualified Code(s): I25.810 - Atherosclerosis of coronary artery bypass graft(s) without angina pectoris - Plan -Patient is admitted to ICU -Continue levophed drip and wean as tolerated -Cardiology consult given cardiac history and ordering physician for paracente sis -Albumin ordered -IV lasix. Bourgeois in place. Monitor intake and output. Fluid restriction -Monitor and replete electrolytes per protocol -Reconcile and continue home medications -VTE ppx -Full code Discharge Plan: Home Plan to discharge in: 48 Hours - Advance Directives Does patient have a Living Will: No Does patient have a Durable POA for Healthcare: No - Code Status/Comfort Care Code Status Assessed: Yes (Full) Critical Care: No Time Spent Managing Pts Care (In Minutes): 50
[2021-11-22] MEDS ORDERED: ONDANSETRON 4 MG/2 ML VIAL IV PRN (22:08)
[2021-11-22] MEDS ORDERED: ACETAMINOPHEN 500 MG TAB PO PRN (22:08)
[2021-11-22 22:23] VITALS: BMI 23.6
[2021-11-23 02:57] LABS: Absolute Lymphocytes (CBC) 0.6 K/uL (0.7-4.9); Hematocrit 35.3 % (39.6-49.0); Lymphocytes % 7.3 % (15.3-44.8); MCV 88.4 fL (80-100); MPV 8.5 fL (7.6-11.3); RBC Red Blood Cell Count 3.99 M/uL (4.33-5.43)
[2021-11-23] MEDS: ALBUMIN HUMAN 25% 50 ML IV SCH ×2 (03:07→03:37)
[2021-11-23] MEDS ORDERED: ALBUMIN HUMAN 25% 100 ML IV ONE (03:21)
[2021-11-23] MEDS ORDERED: ACETAMINOPHEN 500 MG TAB ONE (03:31)
[2021-11-23 03:34] LABS: Albumin 3.1 g/dL (3.4-5.0); Bilirubin Total 1.3 mg/dL (0.2-1.0); Magnesium 2.1 mg/dL (1.8-2.4); Phosphorus 4.2 mg/dL (2.5-4.9); Potassium 3.2 mmol/L (3.5-5.1); Thyroid Stimulating Hormone 2.56 uIU/mL (0.360-3.740)
[2021-11-23] MEDS: NOREPINEPHRINE 4 MG in D5W 250 ML IV SCH ×2 (07:00→18:45)
[2021-11-23] MEDS ORDERED: INFLUENZA VACCINE (for 6+ mo) 0.5 ML DOSE IMVAC ONE (08:00)
[2021-11-23] MEDS: FUROSEMIDE 40 MG/4 ML VIAL IV SCH ×2 (09:00→17:00)
[2021-11-23 09:20] VITALS: O2SAT 97
[2021-11-23] MEDS ORDERED: NOREPINEPHRINE BITARTRATE/D5W 4 MG/250 ML BAG IV ONE (12:37)
[2021-11-23] MEDS: MIDODRINE HCL 5 MG TABLET PO SCH ×2 (13:30→15:30)
--- NOTE | 2021-11-23 14:03 | EKG ---
Test Date: 2021-11-22 Test Time: 16:25:37 Serger: ESTEVAN MEASUREMENT RESULTS: Intervals: Rate: 55 NV: 164 QRSD: 186 QT: 554 QTc: 529 [place]: P: 72 NV: 164 QRS: -67 T: 108 INTERPRETIVE STATEMENTS: Sinus bradycardia Left axis deviation Nonspecific intraventricular block Lateral infarct, age undetermined Cannot rule out Inferior infarct, age undetermined Abnormal ECG Compared to ECG 12/23/2014 16:57:13 Left-axis deviation now present Sinus rhythm no longer present Right bundle-branch block no longer present Myocardial infarct finding still present Electronically Signed On 11-23-21 14:01:32 CDT by Dann Nash
--- NOTE | 2021-11-23 18:30 | P.DS ---
Admission Date: 11/22/21 Discharge Date: 11/23/21 Disposition: ROUTINE DISCHARGE Discharge Condition: FAIR Reason for Admission: Hypotension, Paracentesis Complication - Problems (1) CAD (coronary artery disease) Status: Acute Qualifiers: Coronary Disease-Associated Artery/Lesion type: bypass graft [place] vs. transplanted heart: [place] heart Associated angina: without angina Qualified Code(s): I25.810 - Atherosclerosis of coronary artery bypass graft(s) without angina pectoris (2) Cirrhosis Status: Acute Qualifiers: Hepatic cirrhosis type: alcoholic cirrhosis Ascites presence: with ascites Qualified Code(s): K70.31 - Alcoholic cirrhosis of liver with ascites (3) Hypotension Status: Acute Qualifiers: Hypotension type: unspecified hypotension type Qualified Code(s): I95.9 - Hypotension, unspecified Brief History of Present Illness: Patient is a 76 year old male with history of hypertension, ascites, systolic CHF, and CAD who presented to the ED with complaints of drainage from site of previous paracentesis.. Patient had a successful RLQ paracentesis done by Dr. Gan 1 week ago (ordered by Dr. Gómez) in which 8L were removed. He is noted to have clear drainage from the incision site with minimal edema. Labs are significant for sodium 133, chloride 89, BUN 64, creatinine 1.76, BNP 8000. Chest x-ray showed moderate CHF. he was noted to be borderline hypotensive and fluid overloaded. He was subsequently put on levophed drip, started on lasix, and shannon inserted. Patient admitted for further management. Hospital Course: Patient placed in ICU on Levophed. He reported his blood pressure usually running low with systolic in the 80s. Patient was started on midodrine given history of liver cirrhosis with ascites, and Levophed discontinued. His systolic blood pressure was in the 90s after discontinuing the Levophed drip. Patient is currently asymptomatic. A tape was placed at the paracentesis site and no oozing noted. Patient deemed clinically stable for discharge. His home medications are resumed on discharge. He is prescribed midodrine and Aldactone. Vital Signs/Physical Exam: Temp Pulse Resp BP Pulse Ox 97.2 F 72 24 H 94/69 99 11/23/21 18:00 11/23/21 18:00 11/23/21 18:00 11/23/21 18:00 11/23/21 18:00 General: Alert, Oriented x3 HEENT: Mucous membr. moist/pink Neck: Supple, JVD not distended Respiratory: Clear to auscultation bilaterally, Normal air movement Cardiovascular: Regular rate/rhythm, Normal S1 S2, Edema (Bilateral lower extremities.) Gastrointestinal: Distended, Ascites Laboratory Data at Discharge: WBC 8.20 K/uL (4.3-10.9) 11/23/21 02:44 Hgb 12.0 g/dL (13.6-17.9) L 11/23/21 02:44 Hct 35.3 % (39.6-49.0) L 11/23/21 02:44 Plt Count 266 K/uL (152-406) 11/23/21 02:44 PT 14.2 SECONDS (9.5-12.5) H 11/22/21 16:54 INR 1.29 11/22/21 16:54 Sodium 131 mmol/L (136-145) L 11/23/21 02:44 Potassium 3.2 mmol/L (3.5-5.1) L 11/23/21 02:44 BUN 60 mg/dL (7-18) H 11/23/21 02:44 Creatinine 1.54 mg/dL (0.55-1.3) H 11/23/21 02:44 Glucose 109 mg/dL (74-106) H 11/23/21 02:44 Phosphorus 4.2 mg/dL (2.5-4.9) 11/23/21 02:44 Magnesium 2.1 mg/dL (1.8-2.4) 11/23/21 02:44 Total Bilirubin 1.3 mg/dL (0.2-1.0) H 11/23/21 02:44 AST 25 U/L (15-37) 11/23/21 02:44 ALT 29 U/L (12-78) 11/23/21 02:44 Alkaline Phosphatase 149 U/L (45-117) H 11/23/21 02:44 Triglycerides 55 mg/dL (<150) 11/23/21 02:44 Cholesterol 136 mg/dL (<200) 11/23/21 02:44 HDL Cholesterol 35 mg/dL (40-60) L 11/23/21 02:44 Cholesterol/HDL Ratio 3.89 11/23/21 02:44 Home Medications: Aspirin [Nallely Chewable Aspirin] 1 tab PO DAILY 05/14/14 Clopidogrel Bisulfate [Plavix*] 75 mg PO DAILY #30 tablet 05/17/14 Atorvastatin Calcium [Lipitor] 20 mg PO DAILY 12/23/14 Sacubitril/Valsartan [Entresto 24 mg-26 mg Tablet] 1 tab PO BID 12/23/14 Furosemide 80 mg PO BID 11/15/21 Midodrine HCl [Proamatine*] 5 mg PO TID #90 tab 11/23/21 Spironolactone [Aldactone] 50 mg PO DAILY #60 tab 11/23/21 New Medications: Spironolactone [Aldactone] 50 mg PO DAILY #60 tab Midodrine HCl [Proamatine*] 5 mg PO TID #90 tab Diet: AHA Activity: Ad stephania Followup: Jacob Gómez MD [Primary Care Provider] - Time spent managing pt's care (in minutes): 38
[2021-11-23 20:45] VITALS: BP 102/62; TEMP 98.2
--- NOTE | 2021-11-23 22:25 | CON ---
Date of Consultation: 11/23/2021 Reason For Consultation: CHF exacerbation and hypotension. History Of Present Illness: A 76-year-old male with history of hypertension, liver cirrhosis with as cites, systolic heart failure, coronary artery disease, presented to the emergency room because of th e leakage of the paracentesis site and was found to be in extremely low blood pressure and at same ti me has significant lower extremity edema, shortness of breath. He was given some pressors and Lasix and did very well, and he appears to be clinically stable this morning. Does not have any chest pain or shortness of breath. Lying comfortably in the bed. Past Medical History: Coronary artery disease, dyslipidemia, DVT, liver cirrhosis, systolic heart fa ilure. Past Surgical History: CABG and cardiac stents. Medications: Refer to reconciliation sheet for detailed list. Allergies: NO KNOWN DRUG ALLERGIES. Family History: No premature coronary artery disease or cancer. Social History: Does not smoke or drink. Does not use any drugs. Review of Systems: All systems reviewed and they are negative except for what is mentioned in HPI. Physical Examination: Vital Signs: Reviewed. Head and Neck: Pupils are equal and reactive to light. Intact eye movements. No JVD. No cervical lymphadenopathy. Neck: Supple. Thyroid is not enlarged. Lungs: Clear to auscultation bilaterally. No rhonchi, rales, or crackles. No accessory muscle use. Heart: Irregular. No extra sounds. Abdomen: Soft, nontender. Bowel sounds positive. No organomegaly. No masses or hernia. No rigidi ty or rebound. Extremities: No clubbing or cyanosis. Intact pulses. Skin: No rashes. Neurologic: Alert, awake. No acute focal deficits appreciated. Lymph nodes: No cervical or axillary lymphadenopathy. Investigations: BUN 60, creatinine 1.54, and his potassium was 3.2. Hemoglobin is 12.0. Assessment And Recommendations: 1.Acute on chronic systolic heart failure exacerbation. He diuresed very well, appears to be euvole chip. I will discontinue IV Lasix now, switch him to oral and try to wean him off the Levophed and pl an for possible discharge. 2.Hypotension after a large amount of paracentesis. Recommend to give the patient a small dose of a lbumin and wean off the Levophed as soon as possible in anticipation for discharge. 3.Coronary artery disease. No chest pain. Continue home medications. SR/MODL Voice ID: [id number] Report ID: [id number]
== END 2021-11-23 20:30 | disposition home or self-care (01) ==
LOC: ER 15:15 → ERHOLD 21:17 → INTOOBSV 21:17
PROVIDERS: ADMIT Internal Medicine; ATTEND Internal Medicine
DX: I25.810 Atherosclerosis of coronary artery bypass graft(s) without angina pectoris (principal); K70.31 Alcoholic cirrhosis of liver with ascites; I50.23 Acute on chronic systolic (congestive) heart failure; I95.9 Hypotension, unspecified; R60.9 Edema, unspecified; T88.8XXA Other specified complications of surgical and medical care, not elsewhere classified, initial encounter; Y84.4 Aspiration of fluid as the cause of abnormal reaction of the patient, or of later complication, without mention of misadventure at the time of the procedure; Z20.822 Contact with and (suspected) exposure to COVID-19
CPT/HCPCS: 93005; 87040 ×2; 85025 ×2; 80048; 36415; 83735 ×2; 84100; 85610; 80061; 80076; 83605; 84443; 84484; 80053; 83880; 71045; 51702; 99291; 87811; J1940; P9047; J7030; G0378 ×3